=== PATIENT | male | born 1960 | race Caucasian/White ===

== ENCOUNTER 2020-08-08 13:12 | Inpatient (IN) | payer MEDICAID ==
[~2020-08-08] VITALS: Ht 170.2 cm; Wt 72.6 kg
--- NOTE | 2020-08-08 13:48 | NUR ---
Dr Machado at bedside for MSE.
[2020-08-08] MEDS ORDERED: IV NORMAL SALINE 1000 ML BAG IV ONE (14:00)
[2020-08-08 14:11] LABS: BASOPHILS # (AUTO) 0.1 K/uL (0.0-8.0); BASOPHILS % (AUTO) 1.4 % (0.0-2.0); EOSINOPHILS # (AUTO) 0.5 K/uL (0.0-0.7); EOSINOPHILS % (AUTO) 7.7 % (0.0-7.0); HEMATOCRIT 29.4 % (36.7-47.1); HEMOGLOBIN 9.3 g/dL (12.5-16.3); LYMPHOCYTES # (AUTO) 0.9 K/uL (20.0-40.0); LYMPHOCYTES % (AUTO) 15.8 % (20.5-51.5); MEAN CORPUSCULAR HGB CONC 32 g/dL (32.5-36.3); MEAN CORPUSCULAR VOLUME 79.2 fL (73.0-96.2); MONOCYTES # (AUTO) 0.7 K/uL (2.0-10.0); MONOCYTES % (AUTO) 12.2 % (0.0-11.0); NEUTROPHILS # (AUTO) 3.8 K/uL (1.8-8.9); NEUTROPHILS % (AUTO) 62.9 % (38.5-71.5); PLATELET COUNT (AUTO) 149 K/uL (152-348); RED BLOOD CELL COUNT(AUTO) 3.72 MIL/uL (4.06-5.63)
[2020-08-08 14:19] LABS: CREATININE 0.7 mg/dL (0.6-1.3); POTASSIUM 3.5 mmol/L (3.5-5.1)
[2020-08-08 14:25] LABS: BILIRUBIN,DIRECT 0.4 mg/dL (0.0-0.2); BILIRUBIN,TOTAL 0.6 mg/dL (0.2-1.0)
--- NOTE | 2020-08-08 14:44 | NUR ---
COVID (-) Per Veto Conklin.
--- NOTE | 2020-08-08 15:05 | NUR ---
CT notified that patient is ready for CT with contrast, patient is resting with no signs of distress.
--- NOTE | 2020-08-08 15:09 | NUR ---
computer technical specialist at bedside.
[2020-08-08] MEDS ORDERED: IOHEXOL 300MG/ML 100 ML INFUS..BTL ONE (15:12)
[2020-08-08] MEDS ORDERED: IV NORMAL SALINE 250 ML IV ONE (15:12)
[2020-08-08] MEDS ORDERED: SWABABLE VALVE TRANSFER SET EA MC ONE (15:12)
--- NOTE | 2020-08-08 15:16 | NUR ---
Pt down to CT left in stable condition.
--- NOTE | 2020-08-08 15:35 | NUR ---
Pt back from CT in stable condition.
--- NOTE | 2020-08-08 16:06 | NUR ---
Per 3rd floor patient will be going to Room 312.
--- NOTE | 2020-08-08 16:20 | NUR ---
Patient has been accepted by [facility] for Tele, Dx: GI Bleed. All belongings noted and accounted for. Pending nurse from 3rd floor.
[2020-08-08] MEDS ORDERED: DIPH50CA37 PO (16:25)
[2020-08-08] MEDS ORDERED: MULT-594 PO (16:25)
[2020-08-08] MEDS ORDERED: ACET-2605 PO (16:25)
[2020-08-08] MEDS ORDERED: DIPH25CA83 PO (16:25)
[2020-08-08] MEDS ORDERED: RIBO25TA PO (16:25)
[2020-08-08] MEDS ORDERED: FOLI1TAB94 PO (16:25)
[2020-08-08] MEDS ORDERED: ACET-2154 PO (16:25)
[2020-08-08] MEDS ORDERED: IBUP-1955 PO (16:25)
[2020-08-08 16:33] LABS: *OCCULT BLOOD STOOL POSITIVE (NEGATIVE)
--- NOTE | 2020-08-08 16:56 | NUR ---
Second call to [facility], Per campus recruiterAna Canas RN will be taking patient.
--- NOTE | 2020-08-08 17:04 | NUR ---
Report given to Ana DASILVA.
--- NOTE | 2020-08-08 17:30 | NUR ---
Pt transferred to Room 312, via wheelchair. Pt able to ambulate in steady gait from chair to bed. Warm handoff to Ana DASILVA.
--- NOTE | 2020-08-08 17:50 | NUR ---
received pt from ER via wheelchair. pt is ambulatory. pt alert & oriented, syriac speaking. pt admitted for GI Bleed. pt NSR on the monitor. currently room air, no SOB reported. skin intact, some redness/scratch silva noted on the left chest, below the nipple which pt stated was itchy so he was scratching it. pt requesting for food and water however per PONY ROLL FINISHER Ha [place], keep pt NPO for now except ice chips okay, and he will review chart. pt made aware, given cup of ice chips
[2020-08-08 17:55] VITALS: BP 120/79
[2020-08-08] MEDS ORDERED: MAGNESIUM HYDROXIDE 30 ML LIQUID UDC PO PRN (19:30)
[2020-08-08] MEDS: IV D5 1/2 NS 1000 ML 1,000 ML IV PRN (19:49)
[2020-08-08 20:00] VITALS: BP 142/86
[2020-08-08] MEDS: MORPHINE SULFATE 2 MG/1 ML DISP.SYRIN IV PRN (20:02)
[2020-08-08] MEDS: PANTOPRAZOLE SODIUM 40 MG VIAL IV SCH (20:02)
[2020-08-09] VITALS: BP 154/82
[2020-08-09 04:00] VITALS: BP 121/71
--- NOTE | 2020-08-09 05:46 | NUR ---
Non-remarkable night. Reported 9/10 upper left lateral chest pain radiating towards back. PRN Morphine given with good effect. Social Service consultation ordered due to homelessness.
[2020-08-09] MEDS: IV D5 1/2 NS 1000 ML 1,000 ML IV PRN (06:25)
[2020-08-09 06:39] LABS: BASOPHILS # (AUTO) 0.1 K/uL (0.0-8.0); EOSINOPHILS # (AUTO) 0.5 K/uL (0.0-0.7); EOSINOPHILS % (AUTO) 9.8 % (0.0-7.0); HEMOGLOBIN 9.1 g/dL (12.5-16.3); LYMPHOCYTES # (AUTO) 0.9 K/uL (20.0-40.0); LYMPHOCYTES % (AUTO) 17.3 % (20.5-51.5); MEAN CORPUSCULAR HEMOGLOBIN 24.9 uug (23.8-33.4); MEAN CORPUSCULAR HGB CONC 32 g/dL (32.5-36.3); MEAN CORPUSCULAR VOLUME 78.9 fL (73.0-96.2); MONOCYTES # (AUTO) 0.6 K/uL (2.0-10.0); NEUTROPHILS # (AUTO) 2.8 K/uL (1.8-8.9); NEUTROPHILS % (AUTO) 57.9 % (38.5-71.5); PLATELET COUNT (AUTO) 145 K/uL (152-348); RED BLOOD CELL COUNT(AUTO) 3.67 MIL/uL (4.06-5.63); WHITE BLOOD COUNT (AUTO) 4.9 K/uL (3.6-10.2)
[2020-08-09 07:02] LABS: CREATININE 0.8 mg/dL (0.6-1.3); MAGNESIUM 1.9 mg/dL (1.8-2.4); PHOSPHOROUS 3.6 mg/dL (2.5-4.9); POTASSIUM 3.1 mmol/L (3.5-5.1)
[2020-08-09 07:17] LABS: THYROID STIMULATING HORMONE 3.695 mIU/mL (0.358-3.740)
[2020-08-09] MEDS ORDERED: POTASSIUM CHLORIDE 20 MEQ TAB.PRT.SR PO ONE (08:15)
[2020-08-09] MEDS: PANTOPRAZOLE SODIUM 40 MG VIAL IV SCH (08:45)
[2020-08-09] MEDS: MORPHINE SULFATE 2 MG/1 ML DISP.SYRIN IV PRN ×3 (09:42→20:37)
[2020-08-09 12:00] VITALS: BP 109/64
[2020-08-09] MEDS: THIAMINE HCL 100 MG TABLET PO SCH (13:11)
[2020-08-09] MEDS: MULTIVITAMINS,THERAPEUTIC TABLET PO SCH (13:11)
[2020-08-09] MEDS: FOLIC ACID/VITAMIN B COMP W-C TABLET PO SCH (13:11)
--- NOTE | 2020-08-09 15:50 | NUR ---
Elevator Constructor Electric Consultation: Elevator Constructor Electric consultation requested for homelessness. Patient is a 60 year old male was brought to the ED by paramedics on 08/08 for abdominal pain and diarrhea. Per ED physician's note, patient was recently seen at [facility] on 07/30 for GI bleed, and had tested positive for COVID-19. However, upon admission to [facility] on 08/08, per patient's medical records, patient tested negative for COVID-19. This LPN CMA met with the patient in his hospital room. Patient is awake, alert, oriented x 3 (patient stated that the year was 2000). Patient was receptive to meeting with this LPN CMA. Patient is predominantly Lao speaking, however does speak some Telugu. Patient was able to understand this LPN CMA's questions in Telugu and provided appropriate responses. Patient reported that he has been homeless for the past 9 months, and [place] [address], after testing positive for COVID on 07/30. Patient reports being independent with ADL's, not having any income, and not having insurance. However, patient currently has presumptive Medi-ajit. Patient reports a very long history of heavy alcohol use, stating that he has been drinking for nearly 50 years. Patient reports drinking more then 15 bottles of beer a day, stating "I drink until I pass out". Patient stated that he has not been in any substance abuse treatment program in the past, and when this LPN CMA discussed the option of treatment, patient refused. Patient denies use of drugs and cigarettes. Patient denies hx of mental illness. Patient denies SI and HI. Discharge plans discussed, and patient stated that he plans to return to [facility]. This LPN CMA discussed homeless community resources with the patient. Patient was receptive to receiving these resources, and this LPN CMA to follow up with the patient and provide him with the homeless community resources. Throughout this interview, patient was cooperative with this LPN CMA, engaged in dialogue. Patient's speech was clear. Patient's behavior was appropriate, however patient observed to be disheveled. This LPN CMA received a call from nurse Ammon at [facility], who stated that she was monitoring patient's status and discharge plan. Ammon stated that patient was at the [facility] from 07/31-08/08, and his quarantine ended on 08/08, on the same day that patient was transferred to [facility] emergency room. Discharge plans discussed and this LPN CMA asked Ammon if patient can return to the [facility] after current hospitalization. Ammon stated that patient can return, and provided this LPN CMA with the phone number to call to coordinate discharge plan and transfer back to [facility]: [phone]. Ammon stated to ask for the nurse in charge regarding transferring patient back to [facility]. This LPN CMA informed JOVON Doyle about above discharge plans. PLAN: This LPN CMA to follow-up with the patient to provide homeless resource packet.
[2020-08-09 16:00] VITALS: BP 118/67
[2020-08-09 20:00] VITALS: BP 128/82
[2020-08-09] MEDS: ONDANSETRON 4 MG/2 ML VIAL IV PRN (20:37)
--- NOTE | 2020-08-09 20:45 | NUR ---
patient called c/o touching his head and stomach .patient verbalized pain to his head and stomach he said his nauseous and have a headache given prn pain medication and Zofran prn nausea .
--- NOTE | 2020-08-09 22:30 | NUR ---
patient called and wants something to eat ,informed patient his on full liquid diet only provided juices and ice water .
--- NOTE | 2020-08-09 23:30 | NUR ---
sleeping when rounds made no distress noted . no s/s of pain .
[2020-08-10 00:41] VITALS: BP 140/84
[2020-08-10] MEDS: MORPHINE SULFATE 2 MG/1 ML DISP.SYRIN IV PRN (00:42)
[2020-08-10 04:34] VITALS: BP 111/65
[2020-08-10] MEDS: PANTOPRAZOLE SODIUM 40 MG TABLET.DR PO SCH (06:11)
--- NOTE | 2020-08-10 06:11 | NUR ---
due Protonix given tolerated with ice water. no active bleeding noted during the shift .
[2020-08-10 06:39] LABS: BASOPHILS # (AUTO) 0.1 K/uL (0.0-8.0); BASOPHILS % (AUTO) 1.4 % (0.0-2.0); EOSINOPHILS # (AUTO) 0.5 K/uL (0.0-0.7); EOSINOPHILS % (AUTO) 9.4 % (0.0-7.0); HEMATOCRIT 28.4 % (36.7-47.1); LYMPHOCYTES # (AUTO) 0.9 K/uL (20.0-40.0); LYMPHOCYTES % (AUTO) 17.2 % (20.5-51.5); MEAN CORPUSCULAR HEMOGLOBIN 25.1 uug (23.8-33.4); MEAN CORPUSCULAR HGB CONC 32 g/dL (32.5-36.3); MEAN CORPUSCULAR VOLUME 78.9 fL (73.0-96.2); MONOCYTES # (AUTO) 0.7 K/uL (2.0-10.0); MONOCYTES % (AUTO) 12.5 % (0.0-11.0); NEUTROPHILS # (AUTO) 3.2 K/uL (1.8-8.9); NEUTROPHILS % (AUTO) 59.5 % (38.5-71.5); PLATELET COUNT (AUTO) 147 K/uL (152-348); WHITE BLOOD COUNT (AUTO) 5.4 K/uL (3.6-10.2)
[2020-08-10 07:04] LABS: CREATININE 0.8 mg/dL (0.6-1.3); POTASSIUM 3.2 mmol/L (3.5-5.1)
[2020-08-10] MEDS ORDERED: POTASSIUM CHLORIDE 20 MEQ TAB.PRT.SR PO ONE (08:00)
--- NOTE | 2020-08-10 08:00 | NUR ---
received change of shift report on pt. in bed resting, a/ox4, montenegrin speaking, on tele monitor NSR, no complaints of pain at this time, on room air, no signs of distress. pt ambulatory, BRP, IV on the left AC 18g infusing D5 1/2NS at 100cc. call light within reach safety precautions in place.
[2020-08-10] MEDS: FOLIC ACID/VITAMIN B COMP W-C TABLET PO SCH (09:03)
[2020-08-10] MEDS: THIAMINE HCL 100 MG TABLET PO SCH (09:03)
[2020-08-10] MEDS: MULTIVITAMINS,THERAPEUTIC TABLET PO SCH (09:03)
--- NOTE | 2020-08-10 09:30 | NUR ---
bench worker helper D/c'd
--- NOTE | 2020-08-10 11:52 | NUR ---
Liquor Runner note: This TIPPLE ENGINEER met with the today, and provided him with homeless community resources. Patient also signed the homeless patient waiver, and this TIPPLE ENGINEER filed the waiver in patient's chart. Resources provided include: SW provided the homeless resource packet to the patient, which includes the following information: a list of year round shelters [facility] [address], ; [facility] [address] [facility], ; and [facility] [address] [facility], [phone], along with resources for places to go for food, showers, mental health services, community medical clinics, and pharmacies. These include the following: the [facility] homeless directory which provides a list of places that individuals can go to throughout the week for hot meals, sack lunches, food pantries, and showers; a list of mental health clinics: [facility] [address] [place] [address], ; [facility] [address] [place] [address], ; [facility] [address] [place] [address], ; a list of medical clinics: [facility] [address] [facility] [address], [place]. [place], ; [facility] [address] [facility], [facility] [address] [facility] [place] [address]; [facility] [address] [facility] [place] [address], . SW also provided patient with information on locations of pharmacies.
[2020-08-10 12:00] VITALS: BP 94/64
[2020-08-10 16:00] VITALS: BP 103/65
--- NOTE | 2020-08-10 19:06 | NUR ---
pt in bed sleeping, arousable. a/ox4 on room air, no signs of distress, ambulatory, NPO at midnight for EGD procedure. IV on the left AC 18g D5 1/2NS at 100cc. all medications given as ordered, pt cooperative, safety precautions in place, will endorse to oncoming nurse.
--- NOTE | 2020-08-10 20:00 | NUR ---
RECEIVED PATIENT AWAKE IN BED. A/O X4. ERITREAN SPEAKING. DENIES ANY PAIN OR DISCOMFORT. NO RESP. DISTRESS NOTED. VS WNL. H/L INTACT AND PATENT, NOTED TO LEFT AC #18 GAUGE. CALL LIGHT IN REACH. ALL NEEDS ATTENDED.
[2020-08-10 20:17] VITALS: BP 124/70
--- NOTE | 2020-08-11 | NUR ---
PATIENT NPO ORDERED. WILL CONTINUE TO MONITOR AND ASSESS.
[2020-08-11 04:52] VITALS: BP 102/59
[2020-08-11] MEDS: PANTOPRAZOLE SODIUM 40 MG TABLET.DR PO SCH (06:07)
[2020-08-11 06:21] LABS: BASOPHILS # (AUTO) 0.1 K/uL (0.0-8.0); BASOPHILS % (AUTO) 1.4 % (0.0-2.0); EOSINOPHILS # (AUTO) 0.5 K/uL (0.0-0.7); EOSINOPHILS % (AUTO) 9.1 % (0.0-7.0); HEMATOCRIT 28.9 % (36.7-47.1); HEMOGLOBIN 9.3 g/dL (12.5-16.3); LYMPHOCYTES # (AUTO) 1.2 K/uL (20.0-40.0); LYMPHOCYTES % (AUTO) 21.3 % (20.5-51.5); MEAN CORPUSCULAR HEMOGLOBIN 25.1 uug (23.8-33.4); MEAN CORPUSCULAR HGB CONC 32 g/dL (32.5-36.3); MEAN CORPUSCULAR VOLUME 78.1 fL (73.0-96.2); MONOCYTES # (AUTO) 0.7 K/uL (2.0-10.0); MONOCYTES % (AUTO) 11.9 % (0.0-11.0); NEUTROPHILS # (AUTO) 3.1 K/uL (1.8-8.9); NEUTROPHILS % (AUTO) 56.3 % (38.5-71.5); PLATELET COUNT (AUTO) 169 K/uL (152-348); WHITE BLOOD COUNT (AUTO) 5.6 K/uL (3.6-10.2)
[2020-08-11 06:55] LABS: CREATININE 0.7 mg/dL (0.6-1.3); POTASSIUM 3.4 mmol/L (3.5-5.1)
[2020-08-11] MEDS ORDERED: POTASSIUM CHLORIDE 20 MEQ TAB.PRT.SR PO ONE (08:00)
--- NOTE | 2020-08-11 08:15 | NUR ---
Patient received in bed with eyes open, alert and oriented x4. Patient is on RA with no complaints of SOB or difficulty breathing. Patient's IV on the left AC 18G is patent with no signs of redness or infiltration. Patient denies any pain or discomforts at this time. Patient was then taken via his bed for his EGD procedure.
[2020-08-11] MEDS ORDERED: CEFTRIAXONE 1 G VIAL IM SCH (09:00)
[2020-08-11] MEDS ORDERED: CEFTRIAXONE 1 G in IV DEXTROSE 5% 50 ML IV SCH (10:00)
[2020-08-11] MEDS: MULTIVITAMINS,THERAPEUTIC TABLET PO SCH (10:00)
[2020-08-11] MEDS: THIAMINE HCL 100 MG TABLET PO SCH (10:00)
[2020-08-11] MEDS: FOLIC ACID/VITAMIN B COMP W-C TABLET PO SCH (10:00)
--- NOTE | 2020-08-11 10:00 | NUR ---
Patient was received back on the floor from the EGD procedure via his bed. Patient states that his abdomen is burning. Administered pain medication as ordered. Patient denies any N/V at this time. Patient on RA with no SOB or difficulty breathing. Call light and personal belongings within easy reach.
[2020-08-11] MEDS: MORPHINE SULFATE 2 MG/1 ML DISP.SYRIN IV PRN (10:23)
--- NOTE | 2020-08-11 11:00 | NUR ---
Patient still in pain 10/10 after morphine PRN as ordered. Contacted epic provider Ha Carrasco with new orders to discontinue morphine and start Dilaudid for pain.
[2020-08-11] MEDS: HYDROMORPHONE 1 MG/1 ML DISP.SYRIN IV PRN ×3 (11:35→23:12)
[2020-08-11 11:37] VITALS: BP 137/70
--- NOTE | 2020-08-11 12:00 | NUR ---
Patient states that his pain is much better and just feels a bit of acid/burning. Patient is now resting in bed with no other discomforts noted at this time. Call lights and personal belongings within easy reach.
[2020-08-11] MEDS: ONDANSETRON 4 MG/2 ML VIAL IV PRN (13:36)
[2020-08-11 16:00] VITALS: BP 112/75
--- NOTE | 2020-08-11 18:30 | NUR ---
Patient is resting in bed with eyes open. Patient is on RA with no complaints of SOB or difficulty breathing. Patient states his pain has become bad again 10 out of 10. Dilaudid given as ordered. Patient denies N/V or any other discomforts at this time. Call light and personal belongings within easy reach. Will continue to monitor.
[2020-08-11 20:00] VITALS: BP 122/68
[2020-08-12] MEDS: ACETAMINOPHEN 650 MG/20.3 ML LIQUID UDC PO PRN ×2 (02:04→20:56)
[2020-08-12] MEDS ORDERED: IV NS 1000 ML 1,000 ML IV ONE ×3 (02:45→05:15)
[2020-08-12 04:00] VITALS: BP 121/74
[2020-08-12 04:45] LABS: BASOPHILS % (AUTO) 0.5 % (0.0-2.0); EOSINOPHILS # (AUTO) 0.2 K/uL (0.0-0.7); EOSINOPHILS % (AUTO) 3.2 % (0.0-7.0); HEMATOCRIT 27.9 % (36.7-47.1); HEMOGLOBIN 8.8 g/dL (12.5-16.3); LYMPHOCYTES # (AUTO) 0.5 K/uL (20.0-40.0); MEAN CORPUSCULAR HEMOGLOBIN 24.8 uug (23.8-33.4); MEAN CORPUSCULAR HGB CONC 32 g/dL (32.5-36.3); MEAN CORPUSCULAR VOLUME 78.6 fL (73.0-96.2); MONOCYTES # (AUTO) 0.7 K/uL (2.0-10.0); MONOCYTES % (AUTO) 12.4 % (0.0-11.0); NEUTROPHILS # (AUTO) 4.3 K/uL (1.8-8.9); NEUTROPHILS % (AUTO) 74.9 % (38.5-71.5); PLATELET COUNT (AUTO) 143 K/uL (152-348); RED BLOOD CELL COUNT(AUTO) 3.54 MIL/uL (4.06-5.63); WHITE BLOOD COUNT (AUTO) 5.8 K/uL (3.6-10.2)
[2020-08-12 05:00] LABS: BILIRUBIN,DIRECT 0.4 mg/dL (0.0-0.2); BILIRUBIN,TOTAL 0.6 mg/dL (0.2-1.0)
--- NOTE | 2020-08-12 05:02 | NUR ---
Anil from lab called with lactic acid result of 3.0. Sky Carreno TOOL SHARPENER notified with orders for another 1000ml bolus.
[2020-08-12 05:08] LABS: CREATININE 0.9 mg/dL (0.6-1.3); MAGNESIUM 1.5 mg/dL (1.8-2.4); PHOSPHOROUS 2.7 mg/dL (2.5-4.9); POTASSIUM 3.4 mmol/L (3.5-5.1)
--- NOTE | 2020-08-12 05:25 | NUR ---
Pt had temperature of 102.1 around 0230H, then rechecked and went up to 103.0. Sky Carreno notified with ordered for Tylenol and stat lactic acid and blood cultures. Cooling measures also provided. Lactic acid came back at 2.1. Sky Carreno BATH STEWARD notified with orders for 1 liter bolus. Lactic rechecked and it went up to 3.0. Sky Carreno BATH STEWARD notified again with another order for 1 liter bolus. Temperature went down to 99.1. No distress noted at this time.
[2020-08-12 05:26] LABS: *BILIRUBIN,URIN NEGATIVE (NEGATIVE); *BLOOD, URINE NEGATIVE (NEGATIVE); *CLARITY,URINE CLEAR (CLEAR); *COLOR,URINE YELLOW (YELLOW); *KETONES,URINE NEGATIVE (NEGATIVE); *UROBILINOGEN,URINE 0.2 E.U./dl (NORMAL); LEUKOCYTE ESTERASE ,URINE NEGATIVE (NEGATIVE); NITRITE, URINE NEGATIVE (NEGATIVE); PH,URINE 5.5 (5.0-8.0); UGLUCOSE NEGATIVE (NEGATIVE)
[2020-08-12] MEDS: PANTOPRAZOLE SODIUM 40 MG TABLET.DR PO SCH (06:27)
[2020-08-12] MEDS: FOLIC ACID/VITAMIN B COMP W-C TABLET PO SCH (08:01)
[2020-08-12] MEDS: THIAMINE HCL 100 MG TABLET PO SCH (08:01)
[2020-08-12] MEDS: MULTIVITAMINS,THERAPEUTIC TABLET PO SCH (08:01)
[2020-08-12] MEDS ORDERED: PIPERACILLIN SODIUM/TAZOBACTAM 3.375 G in IV DEXTROSE 5% 50 ML IV SCH ×2 (08:15→08:30)
[2020-08-12] MEDS ORDERED: POTASSIUM CHLORIDE 20 MEQ TAB.PRT.SR PO ONE (08:15)
[2020-08-12] MEDS: MAGNESIUM SULFATE/D5W 100 ML IV SCH ×2 (08:27→10:40)
[2020-08-12] MEDS: IV NS 1000 ML 1,000 ML IV PRN (08:47)
[2020-08-12] MEDS ORDERED: PIPERACILLIN SODIUM/TAZOBACTAM 3.37 G in IV DEXTROSE 5% 100 ML IV SCH (09:00)
[2020-08-12] MEDS: HYDROMORPHONE 1 MG/1 ML DISP.SYRIN IV PRN ×3 (09:05→20:41)
--- NOTE | 2020-08-12 09:08 | NUR ---
PATIENT C/O ABDOMINAL PAIN MEDICATED WITH DILAUDID ORDERED AND EFFECTIVE WILL CONTINUE TO OBSERVE.
[2020-08-12] MEDS: PIPERACILLIN SODIUM/TAZOBACTAM 3.37 G in IV DEXTROSE 5% 100 ML IV SCH ×2 (09:41→16:48)
--- NOTE | 2020-08-12 09:50 | NUR ---
IV SITE LEFT AC INFILTERATED REINSERTED A NEW ONE TO HIS LEFT FOREARM GAUGE 20 WITH ONE ATTEMPT AND CONTINUED ON IV ATB AND FLUIDS ORDERED.
[2020-08-12 11:00] VITALS: BP 105/59
[2020-08-12] MEDS: VANCOMYCIN IV 1,000 MG in IV DEXTROSE 5% 250 ML IV SCH ×2 (13:07→19:30)
--- NOTE | 2020-08-12 15:00 | NUR ---
REMAIN ON IVF ORDERED AND CLEAR LIQUIDS DIET AND IV ANTIBIOTICS ORDERED AND TOLERATING WELL WITH NO ADVERSE OR ALLERGIC REACTIONS AT THIS TIME WILL CONTINUE TO OBSERVE.
[2020-08-12 16:00] VITALS: BP 139/77
--- NOTE | 2020-08-12 16:49 | NUR ---
C/O ABDOMINAL PAIN MEDICATED WITH DILAUDID ORDERED MADE COMFORTABLE REMAIN ON CLEAR LIQUIDS ORDERED DENIES NAUSEA OR VOMITING AT THIS TIME WILL CONTINUE TO OBSERVE.
--- NOTE | 2020-08-12 18:16 | NUR ---
RESTING AT THIS TIME COMFORTABLE IN BED.
--- NOTE | 2020-08-12 19:00 | NUR ---
RECEIVED PT AWAKE, ALERT AND ORIENTEDX3. PT IN NO ACUTE DISTRESS. SAFETY AND COMFORT PROVIDED.WILL CONTINUE TO MONITOR.
[2020-08-12 20:15] VITALS: BP 104/62
[2020-08-13] MEDS: PIPERACILLIN SODIUM/TAZOBACTAM 3.37 G in IV DEXTROSE 5% 100 ML IV SCH (00:38)
[2020-08-13] MEDS: HYDROMORPHONE 1 MG/1 ML DISP.SYRIN IV PRN ×3 (00:54→14:30)
[2020-08-13] MEDS: IV NS 1000 ML 1,000 ML IV PRN (01:03)
[2020-08-13] MEDS: VANCOMYCIN IV 1,000 MG in IV DEXTROSE 5% 250 ML IV SCH (03:00)
[2020-08-13 04:15] VITALS: BP 131/83
[2020-08-13] MEDS: PANTOPRAZOLE SODIUM 40 MG TABLET.DR PO SCH (06:04)
--- NOTE | 2020-08-13 06:07 | NUR ---
PT SLEPT INTERMITTENTLY. PT IN NO ACUTE DISTRESS. IV INTACT. PT AFEBRILE. PT HAD TEMPERATURE OF 99.4 AT START OF THE SHIFT. GAVE TYLENOL PRN AT 2055H AND AFTER AN HOUR TEMPERATURE WAS 98.8. PT WAS GIVEN DILAUDID 1 MG PRN AT 2043H, 53H and 06hFOR ABDOMINAL PAIN. PT TOLERATED IT WELL. PRESCRIBED MEDICATION GIVEN AND PT TOLERATED IT WELL. SAFETY AND COMFORT PROVIDED. ALL NEEDS ARE MET. WILL ENDORSE TO INCOMING NURSE FOR CONTINUITY OF CARE.
[2020-08-13 07:00] LABS: BASOPHILS # (AUTO) 0.1 K/uL (0.0-8.0); BASOPHILS % (AUTO) 1.1 % (0.0-2.0); EOSINOPHILS # (AUTO) 0.6 K/uL (0.0-0.7); EOSINOPHILS % (AUTO) 9.5 % (0.0-7.0); HEMATOCRIT 28.4 % (36.7-47.1); LYMPHOCYTES # (AUTO) 1.1 K/uL (20.0-40.0); MEAN CORPUSCULAR HEMOGLOBIN 25.2 uug (23.8-33.4); MEAN CORPUSCULAR HGB CONC 32 g/dL (32.5-36.3); MEAN CORPUSCULAR VOLUME 79.7 fL (73.0-96.2); MONOCYTES # (AUTO) 1.2 K/uL (2.0-10.0); MONOCYTES % (AUTO) 18.6 % (0.0-11.0); NEUTROPHILS # (AUTO) 3.3 K/uL (1.8-8.9); NEUTROPHILS % (AUTO) 53.8 % (38.5-71.5); PLATELET COUNT (AUTO) 163 K/uL (152-348); RED BLOOD CELL COUNT(AUTO) 3.56 MIL/uL (4.06-5.63); WHITE BLOOD COUNT (AUTO) 6.2 K/uL (3.6-10.2)
[2020-08-13 07:03] LABS: CREATININE 0.8 mg/dL (0.6-1.3); MAGNESIUM 1.9 mg/dL (1.8-2.4); POTASSIUM 3.4 mmol/L (3.5-5.1)
--- NOTE | 2020-08-13 07:32 | NUR ---
PATIENT IS IN BED AWAKE ALERT AND ORIENTED AND VERBALLY RESPONSIVE DENIES PAIN OR DISCOMFORTS AT THIS TIME ON ROOM AIR WITH NO SHORTNESS OF BREATH CONTINUE WITH IVF ORDERED WITH NO S/S OF INFILTERATION ON SITE IVPB CONTINUE ORDERED WITH NO ADVERSE OR ALLERGIC REACTIONS AT THIS TIME.CALL LIGHTS AND PERSOANL BELONGINGS ARE WITHIN EASY REACH MADE COMFORTABLE AND WILL CONTINUE TO OBSERVE AND PROVIDE COMFORT.
[2020-08-13] MEDS: THIAMINE HCL 100 MG TABLET PO SCH (08:00)
[2020-08-13] MEDS ORDERED: POTASSIUM CHLORIDE 20 MEQ TAB.PRT.SR PO ONE (08:00)
[2020-08-13] MEDS: PIPERACILLIN SODIUM/TAZOBACTAM 3.375 G in IV DEXTROSE 5% 50 ML IV SCH ×2 (08:00→15:35)
[2020-08-13] MEDS: MULTIVITAMINS,THERAPEUTIC TABLET PO SCH (08:00)
[2020-08-13] MEDS: FOLIC ACID/VITAMIN B COMP W-C TABLET PO SCH (08:00)
[2020-08-13] MEDS ORDERED: CALCIUM CARBONATE 500 MG TAB.CHEW PO PRN (08:30)
--- NOTE | 2020-08-13 08:49 | NUR ---
PATIENT SEEN AND EXAMINED BY NA [facility] PROVIDER AND THE PLAN IS TO DISCHARGE PATIENT TODAY BUT HE IS COMPLAINING OF SEVERE BURNING PAIN SO NA ADDED NEW MEDS FOR AND WILL OBSERVE IF PAIN CONTINUES WILL ALSO BE STARTED ON REGULAR DIET FOR LUNCH AND OBSERVE TOLERANCE.
[2020-08-13] MEDS: SUCRALFATE 1 G TABLET PO SCH ×3 (08:53→16:27)
--- NOTE | 2020-08-13 08:54 | NUR ---
CARAFATE AND TUMS GIVEN ORDERED WILL OBSERVE.
[2020-08-13] MEDS ORDERED: THIA100T13 PO (11:24)
[2020-08-13] MEDS ORDERED: CALC500T63 PO (11:24)
[2020-08-13] MEDS ORDERED: LEVO750T46 PO (11:24)
[2020-08-13] MEDS ORDERED: MULT-24 PO (11:24)
[2020-08-13] MEDS ORDERED: SUCR1TAB PO (11:24)
[2020-08-13] MEDS ORDERED: FOLI1TAB94 PO (11:24)
[2020-08-13] MEDS ORDERED: PANT40TA2 PO (11:24)
--- NOTE | 2020-08-13 11:30 | NUR ---
PATIENT SEEN BY DAVI REBOLLEDO WITH ORDER TO DISCHARGE PATIENT BACK TO [facility] TODAY AND NOTED.
[2020-08-13 11:55] VITALS: BP 115/62
[2020-08-13] MEDS ORDERED: VANCOMYCIN IV 1,250 MG in IV DEXTROSE 5% 250 ML IV SCH (13:00)
--- NOTE | 2020-08-13 13:45 | NUR ---
CALL RECEIVED FROM CAL HEATER PLANER OPERATOR STATED THAT KEITH AT THE [facility] IS AWARE THAT PATIENT IS BEING DISCHARGED TODAY AND THEY WILL ACCEPT HIM STATED TO JUST CALL THEM AND GIVE REPORT.
[2020-08-13 16:00] VITALS: BP 109/65
--- NOTE | 2020-08-13 16:56 | NUR ---
CALLED [facility] PULLIAM AND REPORT GIVEN TO KEITH FOR CONTINUING CARE PATIENT TO FOLLOW UP WITH [facility] FOR GI FOLLOW UP AND FOLLOW UP WITH HIS PRIMARY DOCTOR WITHIN THE NEXT ONE WEEK.PATIENT ALSO HAS A HAND WRITTEN PRESCRIPTION WHICH INCLUDES ORAL ANTIBIOTICS WILL NEED TO BE FILLED IN PATIENTS OWN PHARMACY AND KEITH EXPRESSED UNDERSTAND.PATIENT STATED WILL BE ABLE TO LEAVE AFTER DINNER WILL CALL THE [facility] TO TRANSPORT HIM.
--- NOTE | 2020-08-13 17:23 | NUR ---
CALLED [facility] SPOKE WITH MORGAN ASHBY SEND A CAB TO PICK PATIENT UP ABOUT 1800 PATIENT IS HAVING HIS DINNER AT THIS TIME DISCHARGE INSTRUCTIONS AND PRESCRIPTIONS GIVEN TO PATIENT AND SHE WAS ALSO INSTRUCTED TO CALL [facility] FOR A FOLLOW UP ON HIS EGD RESULTS AND HE EXPRESSED UNDERSTANDING.
[2020-08-13] MEDS ORDERED: LIDOCAINE-MPF 2% 5 ML VIAL IJ ONE (18:14)
[2020-08-13] MEDS ORDERED: PROPOFOL 200 MG/20 ML BOTTLE IV ONE (18:14)
--- NOTE | 2020-08-13 18:15 | NUR ---
PATIENT DISCHARGED PICKED UP BY THE [facility] FROM THE [facility] IN SATISFACTORY CONDITION WITH DISCHARGE INSTRUCTIONS AND PRESCRIPTIONS AND INSTRUCTIONS TO FOLLOW UP WITH A CARD RUNNER IN 2- 3 WEEKS AND HE EXPRESSED UNDERSTANDING.
[2020-08-13 20:06] LABS: LYMPHOCYTES % (MANUAL) 23 % (20-40); MONOCYTES % (MANUAL) 7 % (2-10); NEUTROPHILS % (MANUAL) 55 % (42-75)
[2020-08-13 20:07] LABS: BASOPHILS % (MANUAL) 1 % (0-2); EOSINOPHILS % (MANUAL) 14 % (0-8)
== END 2020-08-13 18:15 | disposition home or self-care (01) | DRG 280 ==
LOC: ER 13:12 → EDBD 13:12 → TELE3 17:14 → MEDSURG3 08-10 09:10 → TELE3 08-12 03:00 → MEDSURG3 08-12 19:55
PROVIDERS: ADMIT Nurse Practitioner Acute Care; ATTEND Nurse Practitioner Acute Care
PROC: 06L38CZ Occlusion of Esophageal Vein with Extraluminal Device, Via Natural or Artificial Opening Endoscopic (ICD-10-PCS; principal; 2020-08-10)
DX: K70.30 Alcoholic cirrhosis of liver without ascites (principal); J69.0 Pneumonitis due to inhalation of food and vomit; I85.11 Secondary esophageal varices with bleeding; A41.9 Sepsis, unspecified organism; K76.6 Portal hypertension; E83.42 Hypomagnesemia; E87.1 Hypo-osmolality and hyponatremia; E87.2 Acidosis; E86.1 Hypovolemia; K31.89 Other diseases of stomach and duodenum; F10.20 Alcohol dependence, uncomplicated; I25.10 Atherosclerotic heart disease of native coronary artery without angina pectoris; E87.6 Hypokalemia; Z59.0 Homelessness; Z86.73 Personal history of transient ischemic attack (TIA), and cerebral infarction without residual deficits; Z86.16 Personal history of COVID-19
CPT/HCPCS: 36415; 70030-TC; 71045; 83550; 83605; 83690; 83735; 84100; 84443; 85025; 85730; 86625; 86850; 86900; 86901; 87040; 87046; 87177; 89055; 93005; A4217; A4663; C9113; G0378; J0696; J1170; J2270; J2405; J2543; J3370; J3475; J3490; J7030; J7050; J7060; Q9967